=== PATIENT | female | born 1970 | race Caucasian/White ===

== ENCOUNTER 2017-08-05 15:27 | Observation (INO) | payer OTHER ==
[2017-08-05] VITALS (7 sets, daily range): BP systolic 115–174; BP diastolic 63–98; PULSE 70–90; RESP 15–18; TEMP 98.1–98.2; O2SAT 96–100
[~2017-08-05] VITALS: Ht 167.6 cm; Wt 75.0 kg
[~2017-08-05 15:27] MED LIST: LOSA50TA2 PO; OMEP20TA PO; PRAV20TA2 PO; PROZ20CA11 PO
[2017-08-05] MEDS ORDERED: COEN400C (17:22)
[2017-08-05] MEDS ORDERED: DICY10CA12 PO (17:24)
[2017-08-05] MEDS ORDERED: ZOLP5TAB3 PO (17:24)
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
[2017-08-05] MEDS ORDERED: SODIUM CHLORIDE 0.9% FLUSH 10 ML FLUSH IVF PRN (17:30)
[2017-08-05] MEDS ORDERED: ASPIRIN 81 MG CHEW TAB PO ONE (17:30)
[2017-08-05] MEDS ORDERED: NITROGLYCERIN 0.4 MG SL 25 TABS/BTL SL ONE (17:30)
--- NOTE | 2017-08-05 17:52 | RADRPT ---
EXAM DATE/TIME: 08/05/2017 17:25 [place] COMPARISON: No previous studies available for comparison. INDICATIONS : Chest pain MEDICAL HISTORY : Hypertension. Pneumonia SURGICAL HISTORY : None. ENCOUNTER: Initial ACUITY: 1 month PAIN SCORE: 11/06 LOCATION: chest FINDINGS: A single view of the chest demonstrates the lungs to be symmetrically aerated without evidence of mas s, infiltrate or effusion. The cardiomediastinal contours are unremarkable. Osseous structures are intact. CONCLUSION: No acute disease. Calvin Starr MD FACR on August 05, 2017 at 17:50 Board Certified Radiologist. This report was verified electronically.
[2017-08-05 18:24] LABS: AUTOMATED NEUTROPHIL # 5.5 TH/MM3 (1.8-7.7); BASOPHIL % 0.4 % (0.0-2.0); EOSINOPHIL # 0.1 TH/MM3 (0-0.4); EOSINOPHIL % 1.3 % (0.0-4.0); HEMATOCRIT 40.5 % (35.0-46.0); HEMO FLAGS DIFF FINAL; LYMPHOCYTE # 2.9 TH/MM3 (1.0-4.8); MEAN CELL VOLUME 91.3 FL (80.0-100.0); MEAN CORPUSCULAR HEMOGLOBIN 30.7 PG (27.0-34.0); MEAN CORPUSCULAR HGB CONC 33.7 % (32.0-36.0); MONO % 7.7 % (0.0-8.0); NEUT % 59.6 % (16.0-70.0); PLATELET COUNT 258 TH/MM3 (150-450); RED BLOOD COUNT 4.44 MIL/MM3 (4.00-5.30); RED CELL DISTRIBUTION WIDTH 13.2 % (11.6-17.2); WHITE BLOOD COUNT 9.3 TH/MM3 (4.0-11.0)
[2017-08-05 18:41] LABS: APTT (PATIENT) 27.3 SEC (24.3-30.1); PROTHROMBIN TIME - PATIENT 10.7 SEC (9.8-11.6)
[2017-08-05 18:43] LABS: ANION GAP 9 MEQ/L (5-15); BICARBONATE 26.4 MEQ/L (21.0-32.0); BLOOD UREA NITROGEN 27 MG/DL (7-18); CHLORIDE 102 MEQ/L (98-107); GLOMERULAR FILTRATION RATE 44 ML/MIN (>89); POTASSIUM 3.9 MEQ/L (3.5-5.1); SODIUM (NA) 137 MEQ/L (136-145)
[2017-08-05 19:06] LABS: CREATINE KINASE 100 U/L (26-192)
[2017-08-05] MEDS ORDERED: ONDANSETRON HCL 4 MG/2 ML VIAL IV PUSH ONE (19:15)
[2017-08-05] MEDS ORDERED: MORPHINE SULFATE 4 MG/ML INJ IV PUSH ONE (19:15)
[2017-08-05] MEDS ORDERED: SODIUM CHLORIDE 0.9% FLUSH 10 ML FLUSH IV FLUSH PRN (19:15)
[2017-08-05 21:54] LABS: CREATINE KINASE 91 U/L (26-192)
[2017-08-06 00:07] VITALS: PULSE 76
[2017-08-06 01:10] LABS: CREATINE KINASE 116 U/L (26-192)
[2017-08-06 01:23] LABS: CKMB 1.2 NG/ML (0.5-3.6)
[2017-08-06] MEDS ORDERED: MORPHINE SULFATE 8 MG/ML INJ IV PUSH ONE (01:45)
[2017-08-06] MEDS ORDERED: MORPHINE SULFATE 10 MG/ML INJ IV ONE (01:45)
[2017-08-06] MEDS: SODIUM CHLORIDE 0.9% FLUSH 10 ML FLUSH IV FLUSH SCH ×2 (02:19→09:00)
[2017-08-06 04:27] VITALS: PULSE 68
[2017-08-06 07:56] VITALS: BP 113/74; PULSE 67; RESP 16; TEMP 97.7; O2SAT 100
[2017-08-06 08:56] VITALS: PULSE 69
--- NOTE | 2017-08-06 10:05 | HHI.HP ---
HPI Primary Care Physician Unknown Chief Complaint Chest pain History of Present Illness This is a 47-year-old female that presents to ED complaining of 3 episodes of chest discomfort that she's had over the past month. Nothing seemed to bring on. First episodes were to send her chest rating her left arm. Last maybe a minute. Then yesterday she had the same type discomfort but kept recurring so about a minute in duration at a time. Maybe little short of breath or no nausea or diaphoresis. Denies history of CAD. Denies recent illness. Denies fevers or chills. Review of Systems General: Patient denies fevers, chills recent, and recent travel HEENT: Patient denies headache, sore throat, difficulty swallowing. Cardiovascular: Has the chest discomfort as mentioned above. Denies sensation of heart beating rapidly or irregularly. No syncope. Denies diaphoresis. Respiratory: Maybe a little short of breath. Denies inspirational chest discomfort. Denies coughing wheezing or hemoptysis. GI: Patient denies nausea, vomiting, diarrhea, abdominal pain, bloody stools. Musculoskeletal: Patient denies joint pain or edema. Denies calf pain or edema. Neurovascular: Patient denies numbness, tingling, weakness in extremities. Denies headache. Endocrine: Denies polyuria and polydipsia. Hematologic: Denies easy bruising. Skin: Denies rash or itching. Past Family Social History Allergies: Coded Allergies: tramadol (Verified Allergy, Intermediate, ill, 08/05/17) penicillin G (Verified Allergy, Unknown, unknown, 08/05/17) Uncoded Allergies: codiene (Allergy, Mild, rash, 11/14/16) Past Medical History Hypertension and hyperlipidemia. Occasional tobacco abuse. Denies diabetes and CAD. Past Surgical History Noncontributory Reported Medications Reported Meds & Active Scripts Active Prozac (Fluoxetine HCl) 20 Mg Cap 20 Mg PO DAILY Pravastatin 20 Mg Tab 20 Mg PO DAILY Omeprazole 20 Mg Tab 20 Mg PO DAILY Losartan-Hydrochlorothiazide 50-12.5 Mg Tab 1 Tab PO DAILY Reported Dicyclomine (Dicyclomine HCl) 10 Mg Cap 10 Mg PO TID Zolpidem (Zolpidem Tartrate) 5 Mg Tab 5 Mg PO HS PRN Active Ordered Medications Current Medications Medications (Trade) Dose Ordered Sig/Valarie Route Start Time Stop Time Status Last Admin (NS Flush) 2 ml UNSCH PRN IVF 08/05/17 17:30 08/05/17 17:36 (NS Flush) 2 ml UNSCH PRN IV FLUSH 08/05/17 19:15 (NS Flush) 2 ml BID IV FLUSH 08/05/17 21:00 08/06/17 02:19 Family History She thinks his family history of heart disease but has no specifics. Social History Occasionally smokes. When asked to clarify that. Patient states she smokes occasionally and would not quantitate or state if she ever smoked on a more regular basis. Occasional alcohol. Denies illicit drugs. Physical Exam Vital Signs Vital Signs Date Time Temp Pulse Resp B/P (MAP) Pulse Ox O2 Delivery O2 Flow Rate FiO2 08/06/17 08:56 69 08/06/17 07:56 97.7 67 16 113/74 (87) 100 08/06/17 04:27 68 08/06/17 00:07 76 08/05/17 23:25 98.2 75 18 115/63 (80) 99 08/05/17 21:09 71 08/05/17 20:54 18 08/05/17 19:58 99 Nasal Cannula 2.00 08/05/17 19:51 80 18 173/90 (117) 100 Nasal Cannula 2.00 08/05/17 18:30 100 2.00 08/05/17 18:15 79 15 149/89 (109) 99 08/05/17 17:25 72 15 162/92 (115) 99 Room Air 158/90 (112) 08/05/17 17:25 72 16 99 Room Air 08/05/17 17:25 70 16 162/92 (115) 99 Room Air 08/05/17 17:25 99 Room Air 08/05/17 15:31 98.1 90 15 174/98 (123) 96 Physical Exam GENERAL: This is a well-nourished, well-developed patient, in no apparent distress. Patient speaks in clear complete sentences. Patient is pleasant. HEENT: Head is atraumatic and normocephalic. Neck is supple without lymphadenopathy and trachea is midline. No JVD or carotid bruits. CARDIOVASCULAR: Regular rate and rhythm without murmurs, gallops, or rubs. RESPIRATORY: Clear to auscultation. Breath sounds equal bilaterally. No wheezes , rales, or rhonchi. Chest wall is nontender. No use of accessory muscles. GASTROINTESTINAL: Abdomen is nontender, nondistended. Abdomen soft. No obvious pulsatile mass or bruit. No CVA tenderness. Strong femoral pulses bilaterally. Normal bowel sounds in all quadrants. MUSCULOSKELETAL: Patient is moving upper and lower extremities freely. No calf tenderness or edema, no Homans sign. Strong pulses in upper and lower extremities. NEUROLOGICAL: Patient is alert and oriented. Cranial nerves 2-12 are grossly intact. No focal deficits and speech is clear. SKIN: No rash and turgor is normal. Laboratory Laboratory Tests Test 08/05/17 18:00 08/05/17 21:10 08/06/17 00:20 White Blood Count 9.3 Red Blood Count 4.44 Hemoglobin 13.6 Hematocrit 40.5 Mean Corpuscular Volume 91.3 Mean Corpuscular Hemoglobin 30.7 Mean Corpuscular Hemoglobin Concent 33.7 Red Cell Distribution Width 13.2 Platelet Count 258 Mean Platelet Volume 9.1 Neutrophils (%) (Auto) 59.6 Lymphocytes (%) (Auto) 31.0 Monocytes (%) (Auto) 7.7 Eosinophils (%) (Auto) 1.3 Basophils (%) (Auto) 0.4 Neutrophils # (Auto) 5.5 Lymphocytes # (Auto) 2.9 Monocytes # (Auto) 0.7 Eosinophils # (Auto) 0.1 Basophils # (Auto) 0.0 CBC Comment DIFF FINAL Differential Comment Prothrombin Time 10.7 Prothromb Time International Ratio 1.0 Activated Partial Thromboplast Time 27.3 Blood Urea Nitrogen 27 Creatinine 1.29 Random Glucose 110 Calcium Level 9.1 Magnesium Level 2.0 Sodium Level 137 Potassium Level 3.9 Chloride Level 102 Carbon Dioxide Level 26.4 Anion Gap 9 Estimat Glomerular Filtration Rate 44 Total Creatine Kinase 100 91 116 Troponin I LESS THAN 0.02 LESS THAN 0.02 LESS THAN 0.02 Creatine Kinase MB 1.2 Result Diagram: 08/05/17 1800 08/05/17 1800 Imaging Last 48 hours Impressions Chest X-Ray 08/05/171721 Signed Impressions: Service Date/Time: Saturday, August 05, 2017 17:25 - CONCLUSION: No acute disease. Calvin Starr MD FACR Course Last 48 hours Impressions Chest X-Ray 08/05/171721 Signed Impressions: Service Date/Time: Saturday, August 05, 2017 17:25 - CONCLUSION: No acute disease. Calvin Starr MD FACR Caprini VTE Risk Assessment Caprini VTE Risk Assessment: No/Low Risk (score <= 1) Caprini Risk Assessment Model Point Value = 1 Point Value = 2 Point Value = 3 Point Value = 5 Age 41-60 Minor surgery BMI > 25 kg/m2 Swollen legs Varicose veins or History of unexplained or recurrent spontaneous Oral contraceptives or hormone replacement Sepsis (< 1 month) Serious lung disease, including pneumonia (< 1 month) Abnormal pulmonary function Acute myocardial infarction Congestive heart failure (< 1 month) History of inflammatory bowel disease Medical patient at bed rest Age 61-74 Arthroscopic surgery Major open surgery (> 45 min) Laparoscopic surgery (> 45 min) Malignancy Confined to bed (> 72 hours) Immobilizing plaster cast Central venous access Age >= 75 History of VTE Family history of VTE Factor V Leiden Prothrombin [id number] Lupus anticoagulant Anticardiolipin antibodies Elevated serum homocysteine Heparin-induced thrombocytopenia Other congenital or acquired thrombophilia Stroke (< 1 month) Elective arthroplasty Hip, pelvis, or leg fracture Acute spinal cord injury (< 1 month) Prophylaxis Regimen Total Risk Factor Score Risk Level Prophylaxis Regimen 0-1 Low Early ambulation 2 Moderate Order ONE of the following: *Sequential Compression Device (SCD) *Heparin 5000 units SQ BID 3-4 Higher Order ONE of the following medications: *Heparin 5000 units SQ TID *Enoxaparin/Lovenox 40 mg SQ daily (WT < 150 kg, CrCl > 30 mL/min) *Enoxaparin/Lovenox 30 mg SQ daily (WT < 150 kg, CrCl > 10-29 mL/min) *Enoxaparin/Lovenox 30 mg SQ BID (WT < 150 kg, CrCl > 30 mL/min) AND/OR *Sequential Compression Device (SCD) 5 or more Highest Order ONE of the following medications: *Heparin 5000 units SQ TID (Preferred with Epidurals) *Enoxaparin/Lovenox 40 mg SQ daily (WT < 150 kg, CrCl > 30 mL/min) *Enoxaparin/Lovenox 30 mg SQ daily (WT < 150 kg, CrCl > 10-29 mL/min) *Enoxaparin/Lovenox 30 mg SQ BID (WT < 150 kg, CrCl > 30 mL/min) AND *Sequential Compression Device (SCD) Assessment and Plan Assessment and Plan * Chest pain: Patient has had serial cardiac enzymes and EKGs for ruling out purposes. She has been seen by Dr. Chapman cardiology in the chest pain center and will undergo a Martin protocol ETT. She'll be discharged home if stress test is nonischemic with instructions to follow-up with PCP and return to ED for interval issues. * Hypertension: Continue current medication. * Hyperlipidemia: Continue current medication. * Tobacco abuse: Patient has been counseled on importance of smoking cessation. Patient is stable at this time. She is agreeable to this plan. Bang Abraham Aug 06, 2017 10:04
[2017-08-06 10:31] VITALS: BP 106/64; PULSE 83; RESP 18; TEMP 98.2; O2SAT 98
--- NOTE | 2017-08-06 10:35 | HHI.DCPOC ---
Discharge Care Plan Diagnosis: (1) Tobacco abuse (2) Chest pain (3) Hypertension (4) Hyperlipidemia Goals to Promote Your Health * To prevent worsening of your condition and complications * To maintain your health at the optimal level Directions to Meet Your Goals Take your medications as prescribed Follow your dietary instruction Follow activity as directed Keep your appointments as scheduled Take your immunizations and boosters as scheduled If your symptoms worsen call your PCP, if no PCP go to Urgent Care Center or Emergency Room Smoking is Dangerous to Your Health. Avoid second hand smoke Call the 24-hour hour crisis hotline for domestic abuse at [place] Aug 06, 2017 10:35
[2017-08-06 11:03] VITALS: O2SAT 99
--- NOTE | 2017-08-06 17:07 | TR ---
Date Performed: 08/06/2017 Time Performed: 10:04:50 DOCTOR: Vicky Chapman DRUG LIST: CLINICAL HISTORY: REASON FOR TEST: REASON FOR ENDING: OBSERVATION: CONCLUSION: MORENA PROTOCOL. NO CP OR SOB. TEST STOPPED AFTER EXCEEDING GOAL HR SECONDARY TO LEG FATIGUE.Maximum TC=136 % Max HR Achieved=89.0% Maximum TE=591/82 Total Exercise Time=8:10 COMMENTS:
--- NOTE | 2017-08-06 17:09 | EKG ---
Date Performed: 08/06/2017 Time Performed: 00:50:56 PTAGE: 47 years EKG: Sinus rhythm Nonspecific ST changes Since PREVIOUS TRACING , no significant change noted PREVIOUS TRACIN08/05/2017 21.32 DOCTOR: Vicky Chapman Interpretating Date/Time 08/06/2017 17:07:25
--- NOTE | 2017-08-06 17:10 | EKG ---
Date Performed: 08/05/2017 Time Performed: 15:55:31 PTAGE: 47 years EKG: Sinus rhythm NORMAL ECG NO PREVIOUS TRACING DOCTOR: Vicky Chapman Interpretating Date/Time 08/06/2017 17:08:33
--- NOTE | 2017-08-06 17:11 | EKG ---
Date Performed: 08/05/2017 Time Performed: 21:32:25 PTAGE: 47 years EKG: Sinus rhythm NORMAL ECG Since PREVIOUS TRACING , no significant change noted PREVIOUS TRACIN08/05/2017 15.55 DOCTOR: Vicky Chapman Interpretating Date/Time 08/06/2017 17:09:24
== END 2017-08-06 12:26 | disposition home or self-care (01) ==
LOC: NEPE 15:27 → NEDA 19:13 → NEPFCDU 21:25
PROVIDERS: ADMIT Internal Medicine Cardiovascular Disease; ATTEND Internal Medicine Cardiovascular Disease
DX: R07.9 Chest pain, unspecified (principal); I10 Essential (primary) hypertension; E78.5 Hyperlipidemia, unspecified; F17.200 Nicotine dependence, unspecified, uncomplicated; Z79.899 Other long term (current) drug therapy
CPT/HCPCS: 71010; 80048; 82550; 82552; 83735; 84484; 84703; 85025; 85610; 85730; 93005; 93017; 96374; 96375; 96376; G0378; J2270; J2405